=== PATIENT | male | born 1960 | race Caucasian/White ===

== ENCOUNTER 2017-06-20 16:01 | Emergency (ER) | payer OTHER ==
--- NOTE | 2017-06-20 16:44 | XRAY Preliminary Report ---
Exam: XR Wrist 4 View LT IMPRESSION: Normal wrist radiography. [facility] SITE ID: [id number]
--- NOTE | 2017-06-20 16:46 | XRAY Report ---
EXAM: LEFT WRIST RADIOGRAPHY EXAM DATE: 06/20/2017 04:16 PM. CLINICAL HISTORY: Trauma. COMPARISON: None. TECHNIQUE: 4 views. FINDINGS: Bones: Normal. No fractures or bone lesions. Joints: Normal. No subluxations. Soft Tissues: Normal. No soft tissue swelling. IMPRESSION: Normal wrist radiography. [facility] Referring Provider Line: [phone] SITE ID: [id number]
--- NOTE | 2017-06-20 17:08 | ED Physician Documentation ---
PD HPI UPPER EXT INJURY - Stated complaint Stated Complaint: LEFT WRIST INJ - Chief complaint Chief Complaint: Ext Problem - History obtained from History obtained from: Patient - History of Present Illness Location: Left, Wrist Type of injury: Twist (doing weighted curls in gym) Timing - onset: Yesterday (while working out in gym, was doing curls with weights and felt onset pain in wrist, which has continued with ROM.) Timing - details: Abrupt onset, Still present Worsened by: Moving, Palpating Associated symptoms: No: Weakness, Numbness, Swelling Similar symptoms before: Has not had sx before Recently seen: Not recently seen Review of Systems Constitutional: denies: Fever, Chills Skin: denies: Rash, Lesions, Abrasion (s) Neurologic: denies: Focal weakness, Numbness PD PAST MEDICAL HISTORY - Past Medical History Cardiovascular: Hypertension, Other Respiratory: None Endocrine/Autoimmune: Other GI: GERD, Other : Renal insuffiency, Other HEENT: Other Psych: Depression Musculoskeletal: Other Derm: None - Past Surgical History General: Other Ortho: Other HEENT: Other - Present Medications Home Medications: Ambulatory Orders Medication Instructions Recorded Confirmed Calcium Carbonate [Tums Ultra] 400 mg PO BID 02/08/14 06/20/17 Magnesium Oxide [Magnesium] 500 mg PO DAILY 02/08/14 06/20/17 Mycophenolate Sodium [Myfortic] 500 mg PO BID 02/08/14 06/20/17 Ondansetron HCl [Zofran] 4 mg PO Q6HR PRN #10 tablet 05/28/16 06/20/17 Tacrolimus 1 mg PO BID 05/28/16 06/20/17 - Allergies Allergies/Adverse Reactions: Allergies Allergy/AdvReac Type Severity Reaction Status Date / Time thiopental [Thiopental] Allergy Respiratory Verified 06/20/17 16:57 succinylcholine AdvReac Unknown Unknown Verified 06/20/17 16:57 [Succinylcholine] vitamin k Allergy Rash Uncoded 06/20/17 16:57 - Social History Does the pt smoke?: No Smoking Status: Never smoker Does the pt drink ETOH?: No Does the pt have substance abuse?: No - Immunizations Immunizations are current?: Yes PD ED PE NORMAL - Vitals Vital signs reviewed: Yes - General General: Alert and oriented X 3, No acute distress, Well developed/nourished - Derm Derm: Normal color, Warm and dry, No rash - Extremities Extremities: Other (left wrist with tenderness dorsal ulnar side. No obvious crepitance on ROM. No redness. Navicular area not tender. ) Results - Vitals Vitals: Oxygen O2 Source Room air - Rads (name of study) left wrist Radiology: Prelim report reviewed (no fractures/acute process) PD MEDICAL DECISION MAKING - ED course Complexity details: reviewed results, considered differential, d/w patient Departure - Departure Disposition: 01 Home, Self Care Clinical Impression: Left wrist sprain Qualifiers: Encounter type: initial encounter Qualified Code(s): S63.502A - Unspecified sprain of left wrist, initial encounter Condition: Stable Record reviewed to determine appropriate education?: Yes Instructions: ED Sprain Wrist Follow-Up: CRISTINA MICHELLE [Primary Care Provider] - Comments: Light use of the wrist for a week and then progress weights and work out lightly and progress as able. This may take even a couple of weeks to fully improve. Ibuprofen or naproxen twice daily for the next 4-5 days. Recheck if not better over the next 2 weeks. Discharge Date/Time: 06/20/17 17:41
[2017-06-20 17:42] VITALS: BP 142/91
== END 2017-06-20 17:41 | disposition home or self-care (01) ==
LOC: ED 16:01
DX: S63.502A Unspecified sprain of left wrist, initial encounter (principal); X50.9XXA Other and unspecified overexertion or strenuous movements or postures, initial encounter; Y93.B3 Activity, free weights; Y92.39 Other specified sports and athletic area as the place of occurrence of the external cause
CPT/HCPCS: 99283

== ENCOUNTER 2019-03-17 10:44 | Emergency (ER) | payer OTHER ==
[2019-03-17 10:54] VITALS: BP 153/96
--- NOTE | 2019-03-17 12:11 | ED Physician Documentation ---
History of Present Illness - Stated complaint Stated Complaint: MED REFILL - Chief complaint Chief Complaint: General - History obtained from History obtained from: Patient - History of Present Illness Timing: Today (Is a very pleasant gentleman who is status post remote liver transplant who was on a high-dose steroid taper because of recent episode of rejection and because of the steroids became diabetic. Due to a problem between his doctor and the pharmacy he was mistakenly prescribed Lantus when he is supposed to be on lispro and just needs lispro.) Review of Systems Constitutional: denies: Fever, Chills Respiratory: denies: Dyspnea, Cough GI: denies: Abdominal Pain PD PAST MEDICAL HISTORY - Past Medical History Cardiovascular: Hypertension, Other Respiratory: None Endocrine/Autoimmune: Other GI: GERD, Other : Renal insuffiency, Other HEENT: Other Psych: Depression Musculoskeletal: Other Derm: None - Past Surgical History General: Other Ortho: Other HEENT: Other - Present Medications Home Medications: Ambulatory Orders Medication Instructions Recorded Confirmed Calcium Carbonate [Tums Ultra] 400 mg PO BID 02/08/14 06/20/17 Magnesium Oxide [Magnesium] 500 mg PO DAILY 02/08/14 06/20/17 Mycophenolate Sodium [Myfortic] 500 mg PO BID 02/08/14 06/20/17 Ondansetron HCl [Zofran] 4 mg PO Q6HR PRN #10 tablet 05/28/16 06/20/17 Tacrolimus 1 mg PO BID 05/28/16 06/20/17 Insulin Lispro [Humalog] 1 unit SUBQ ACHS #1 amp 03/17/19 - Allergies Allergies/Adverse Reactions: Allergies Allergy/AdvReac Type Severity Reaction Status Date / Time thiopental [Thiopental] Allergy Respiratory Verified 03/17/19 10:54 succinylcholine AdvReac Unknown Unknown Verified 03/17/19 10:54 [Succinylcholine] vitamin k Allergy Rash Uncoded 03/17/19 10:54 - Social History Does the pt smoke?: No Smoking Status: Never smoker Does the pt drink ETOH?: No Does the pt have substance abuse?: No - Immunizations Immunizations are current?: Yes PD ED PE NORMAL - Vitals Vital signs reviewed: Yes - General General: Alert and oriented X 3, No acute distress - HEENT HEENT: PERRL (no icterus) - Neuro Neuro: Alert and oriented X 3, Normal speech Results - Vitals Vitals: Vital Signs - 24 hr 03/17/19 10:49 Temperature 36.8 C Heart Rate 86 Respiratory 18 Rate Blood Pressure 153/96 H O2 Saturation 99 Oxygen O2 Source Room air Departure - Departure Disposition: 01 Home, Self Care Clinical Impression: Hyperglycemia Condition: Good Record reviewed to determine appropriate education?: Yes Health Concerns: high blood sugar, needs insulin rx Plan of Treatment: refill meds Care Goals: improve blood sugar Assessment: as above Prescriptions: Insulin Lispro [Humalog] 1 unit SUBQ ACHS #1 amp
== END 2019-03-17 12:10 | disposition home or self-care (01) ==
LOC: ED 10:44
DX: Z76.0 Encounter for issue of repeat prescription (principal); E09.65 Drug or chemical induced diabetes mellitus with hyperglycemia; E09.2 Drug or chemical induced diabetes mellitus with kidney complications; I10 Essential (primary) hypertension; Z79.4 Long term (current) use of insulin; Z94.4 Liver transplant status
CPT/HCPCS: 99281; 99282